=== PATIENT | female | born 1970 | race Caucasian/White ===

== ENCOUNTER 2021-05-21 06:28 | Day surgery (SDC) | payer MEDICAID, SELFPAY ==
[~2021-05-21] VITALS: Ht 167.6 cm; Wt 145.1 kg
[2021-05-21] MEDS ORDERED: MIDAZOLAM HCL 5 MG/5 ML VIAL ONE (08:27)
[2021-05-21] MEDS ORDERED: MEPERIDINE 100 MG INJ. 100 MG/ML VIAL ONE (08:27)
[2021-05-21] MEDS ORDERED: fentaNYL CITRATE/PF 100 MCG/2 ML AMP ONE (08:34)
[2021-05-21 15:26] VITALS: BP_SYST 119
== END 2021-05-21 10:20 | disposition home or self-care (01) ==
LOC: SDS 06:28 → SMU 06:31 → SDS 10:20
PROVIDERS: ATTEND Internal Medicine Gastroenterology
DX: K21.9 Gastro-esophageal reflux disease without esophagitis (principal); E66.01 Morbid (severe) obesity due to excess calories; K29.50 Unspecified chronic gastritis without bleeding; Z20.822 Contact with and (suspected) exposure to COVID-19; Z79.899 Other long term (current) drug therapy
CPT/HCPCS: 36415; 43239; 87426; 88305; 88312; 88313; 99152; G0378; J2250; J3010; U0003; J2175